=== PATIENT | male | born 2000 | race Caucasian/White ===

== ENCOUNTER 2021-07-13 15:45 | Emergency (ER) | payer OTHER, SELFPAY ==
[2021-07-13] MEDS ORDERED: Morphine 4 MG/ML VIAL ONE (19:42)
[2021-07-13] MEDS ORDERED: Ondansetron PF 4 MG/2 ML Vial ONE (19:42)
[2021-07-13] MEDS ORDERED: Ketorolac Tromethamine 30 MG/ML VIAL ONE (19:42)
[2021-07-13] MEDS ORDERED: Tetracaine 0.5% PF 4 ML BOT ONE (19:43)
[2021-07-13 20:04] LABS: #Basophils 0.1 10x3/uL (0.0-0.2); #Eosinphils 0.5 10x3/uL (0.0-0.5); #Neutrophils 6.4 10x3/uL (1.5-8.4); %Basophils 0.7 % (0.0-2.0); %Eosinophils 4.6 % (0.0-6.0); %Lymphocytes 24.8 % (18.0-47.0); %Neutrophils 60.3 % (40.0-75.0); Hemoglobin 17.4 g/dL (13.5-17.5); Mean Corpuscular HGB CONC 33.9 g/dL (32.0-36.0); Mean Corpuscular Hemoglobin 30.2 pg (27.0-33.0); Mean Corpuscular Volume 89.1 fl (81.2-95.1); Mean Platelet Volume 9.9 fl (7.4-10.4); Platelet Count 259 10x3/uL (150-450); RBC Distribution Width 12.5 % (11.5-14.5); Red Blood Cell (RBC) Count 5.76 10x6/uL (4.32-5.72); White Blood Cell (WBC) Count 10.7 10x3/uL (3.5-10.5)
[2021-07-13 20:19] LABS: ALT (SGPT) 42 U/L (8-55); AST (SGOT) 35 U/L (5-34); Albumin 5.4 g/dL (3.5-5.0); Alkaline Phosphatase 76 U/L (50-130); Anion Gap 16 mmol/L (10-20); BUN (Urea Nitrogen) 16 mg/dL (8.9-20.6); Bilirubin, Total 2.1 mg/dL (0.2-1.2); Calc. Creatinine Clearance 0 mL/min (70-130); Carbon Dioxide 27 mmol/L (22-29); Chloride 100 mmol/L (98-107); Glucose 83 mg/dL (70-105); Potassium 3.6 mmol/L (3.5-5.1); Protein, Total 9.4 g/dL (6.0-8.3); Sodium 139 mmol/L (136-145)
[2021-07-13] MEDS ORDERED: Fluorescein Opthalmic Strip ONE (20:53)
== END 2021-07-13 21:05 | disposition home or self-care (01) ==
LOC: CSHERS 15:45
DX: H00.013 Hordeolum externum right eye, unspecified eyelid (principal); F17.200 Nicotine dependence, unspecified, uncomplicated
CPT/HCPCS: 36415; 70487; 80053; 85025; 87040; 96374; 96375; J1885; J2270; J2405

== ENCOUNTER 2022-05-09 00:34 | Emergency (ER) | payer SELFPAY ==
[2022-05-09 01:12] LABS: #Basophils 0.1 10x3/uL (0.0-0.2); #Eosinphils 0.4 10x3/uL (0.0-0.5); #Monocytes 0.7 10x3/uL (0.0-1.1); #Neutrophils 6.6 10x3/uL (1.5-8.4); %Basophils 0.6 % (0.0-2.0); %Eosinophils 3.7 % (0.0-6.0); %Monocytes 6.8 % (0.0-10.0); %Neutrophils 62.5 % (40.0-75.0); Hemoglobin 15.4 g/dL (13.5-17.5); Mean Corpuscular HGB CONC 33.8 g/dL (32.0-36.0); Mean Corpuscular Hemoglobin 30.6 pg (27.0-33.0); Mean Corpuscular Volume 90.5 fl (81.2-95.1); Mean Platelet Volume 9.7 fl (7.4-10.4); Platelet Count 228 10x3/uL (150-450); RBC Distribution Width 12.3 % (11.5-14.5); Red Blood Cell (RBC) Count 5.03 10x6/uL (4.32-5.72); White Blood Cell (WBC) Count 10.6 10x3/uL (3.5-10.5)
[2022-05-09 01:22] LABS: ALT (SGPT) 40 U/L (8-55); AST (SGOT) 43 U/L (5-34); Acetaminophen Less than 10.0 mcg/mL (10.0-30.0); Albumin 4.5 g/dL (3.5-5.0); Alcohol Less than 10 mg/dL (Less than 10); Alkaline Phosphatase 63 U/L (40-110); Anion Gap 13 mmol/L (10-20); BUN (Urea Nitrogen) 12 mg/dL (8.9-20.6); Bilirubin, Total 0.9 mg/dL (0.2-1.2); Calc. Creatinine Clearance 0 mL/min (70-130); Calcium 9.9 mg/dL (7.8-10.44); Carbon Dioxide 27 mmol/L (22-29); Chloride 104 mmol/L (98-107); Estimated GFR 104; Glucose 83 mg/dL (70-105); Magnesium 2.2 mg/dL (1.6-2.6); Potassium 3.9 mmol/L (3.5-5.1); Protein, Total 7.5 g/dL (6.0-8.3); Salicylate Less than 8.0 mg/dL (15.0-30.0); Sodium 140 mmol/L (136-145)
[2022-05-09 02:38] LABS: Bilirubin Neg (Negative); Blood, Urine 10 (Negative); Clarity Slightly Cloudy (Clear); Glucose, Urine (Dipstick) Normal (Negative); Ketone, Urine 5 mg/dL (Negative); Leukocyte 25 (Negative); Nitrite Negative (Negative); Protein, Urine (Dipstick) 30 mg/dl (Neg-Trace)
[2022-05-09 02:44] LABS: Amphetamine Detected (NotDetected); Barbiturates Screen Not Detected (NotDetected); Benzodiazepine Screen Not Detected (NotDetected); Cocaine Metabolite Screen Not Detected (NotDetected); Methadone Not Detected (NotDetected); Methamphetamine Detected (NotDetected); Opiate Screen Not Detected (NotDetected); Oxycodone Screen Not Detected (NotDetected); Phencyclidine (PCP) Not Detected (NotDetected); THC/Cannabinoid Screen Not Detected (NotDetected); Tricyclic Screen Not Detected (NotDetected)
[2022-05-09 02:47] LABS: Bacteria/HPF 1+ HPF (None Seen); RBC/HPF 0-3 HPF (0-3); Squamous Epithelial 0-3 HPF (0-3)
[2022-05-09 02:48] LABS: Mucous/LPF 2+ LPF (<2+); Sperm/HPF 1+ HPF (None Seen)
== END 2022-05-09 11:40 | disposition home or self-care (01) ==
LOC: CSHERS 00:34
DX: F15.10 Other stimulant abuse, uncomplicated (principal); F17.200 Nicotine dependence, unspecified, uncomplicated
CPT/HCPCS: 36415; 80053; 80306; 80307; 81003; 81015; 83735; 84443; 85025; 93005

== ENCOUNTER 2022-05-18 23:04 | Emergency (ER) | payer SELFPAY ==
[2022-05-18] MEDS ORDERED: Fluorescein Opthalmic Strip ONE (23:38)
[2022-05-18] MEDS ORDERED: Tetracaine 0.5% PF 4 ML BOT ONE (23:38)
== END 2022-05-19 00:01 | disposition home or self-care (01) ==
LOC: CSHERS 23:04
DX: H57.13 Ocular pain, bilateral (principal)
CPT/HCPCS: 99283

== ENCOUNTER 2022-06-05 23:10 | Emergency (ER) | payer SELFPAY ==
[2022-06-05 23:58] LABS: #Basophils 0.1 10x3/uL (0.0-0.2); #Eosinphils 0.4 10x3/uL (0.0-0.5); #Monocytes 0.9 10x3/uL (0.0-1.1); #Neutrophils 5.2 10x3/uL (1.5-8.4); %Basophils 0.6 % (0.0-2.0); %Eosinophils 3.8 % (0.0-6.0); %Lymphocytes 30.4 % (18.0-47.0); %Monocytes 9.6 % (0.0-10.0); %Neutrophils 55.3 % (40.0-75.0); Hemoglobin 14.7 g/dL (13.5-17.5); Mean Corpuscular HGB CONC 34.5 g/dL (32.0-36.0); Mean Corpuscular Hemoglobin 30.6 pg (27.0-33.0); Mean Corpuscular Volume 88.6 fl (81.2-95.1); Mean Platelet Volume 9.8 fl (7.4-10.4); Platelet Count 253 10x3/uL (150-450); RBC Distribution Width 11.7 % (11.5-14.5); Red Blood Cell (RBC) Count 4.81 10x6/uL (4.32-5.72); White Blood Cell (WBC) Count 9.5 10x3/uL (3.5-10.5)
[2022-06-06 00:17] LABS: ALT (SGPT) 24 U/L (8-55); AST (SGOT) 21 U/L (5-34); Acetaminophen Less than 10.0 mcg/mL (10.0-30.0); Albumin 4.6 g/dL (3.5-5.0); Alcohol Less than 10 mg/dL (Less than 10); Alkaline Phosphatase 81 U/L (40-110); Anion Gap 15 mmol/L (10-20); BUN (Urea Nitrogen) 11 mg/dL (8.9-20.6); Bilirubin, Total 1.3 mg/dL (0.2-1.2); Calc. Creatinine Clearance 0 mL/min (70-130); Calcium 9.9 mg/dL (7.8-10.44); Carbon Dioxide 28 mmol/L (22-29); Chloride 105 mmol/L (98-107); Estimated GFR 99; Glucose 88 mg/dL (70-105); Potassium 3.8 mmol/L (3.5-5.1); Protein, Total 7.6 g/dL (6.0-8.3); Salicylate Less than 8.0 mg/dL (15.0-30.0); Sodium 144 mmol/L (136-145)
[2022-06-06 02:03] LABS: Amphetamine Detected (NotDetected); Barbiturates Screen Not Detected (NotDetected); Benzodiazepine Screen Not Detected (NotDetected); Cocaine Metabolite Screen Not Detected (NotDetected); Methadone Not Detected (NotDetected); Methamphetamine Detected (NotDetected); Opiate Screen Not Detected (NotDetected); Oxycodone Screen Not Detected (NotDetected); Phencyclidine (PCP) Not Detected (NotDetected); THC/Cannabinoid Screen Not Detected (NotDetected); Tricyclic Screen Not Detected (NotDetected)
[2022-06-06 06:20] LABS: SARS-CoV-2 NAA Rapid Test Not Detected (NotDetected)
== END 2022-06-06 09:58 ==
LOC: CSHERS 23:10
DX: F15.20 Other stimulant dependence, uncomplicated (principal); S50.812A Abrasion of left forearm, initial encounter; S30.811A Abrasion of abdominal wall, initial encounter; F17.210 Nicotine dependence, cigarettes, uncomplicated; X78.1XXA Intentional self-harm by knife, initial encounter
CPT/HCPCS: 80053; 80306; 80307; 85025; 99285; U0002